=== PATIENT | male | born 1985 | race Caucasian/White ===

== ENCOUNTER 2021-06-09 02:11 | Emergency (ER) | payer SELFPAY | END 2021-06-09 02:23 | disposition home or self-care (01) | LOC: MW.ED 02:11 | DX: Z00.8 Encounter for other general examination (principal); Z88.2 Allergy status to sulfonamides | CPT/HCPCS: 99282; 99283 ==

== ENCOUNTER 2021-10-14 20:26 | Emergency (ER) | payer OTHER ==
[2021-10-14] MEDS ORDERED: Ketorolac 30 MG/ML SDV IM STA (22:07)
[2021-10-14] MEDS ORDERED: Amoxicillin/Clavulanate K 875-125 MG Tab PO STA (22:08)
[2021-10-14] MEDS ORDERED: Lidocaine 1% 5 ML VIAL INJECT ONE (23:16)
== END 2021-10-14 23:54 | disposition home or self-care (01) ==
LOC: MW.ED 20:26
DX: S61.252A Open bite of right middle finger without damage to nail, initial encounter (principal); Z88.2 Allergy status to sulfonamides; W54.0XXA Bitten by dog, initial encounter
CPT/HCPCS: 12001; 73130; 96372; 99283; A9270; J1885; 99282

== ENCOUNTER 2023-07-03 15:52 | Inpatient (IN) | payer OTHER ==
[2023-07-03] MEDS: Sodium Chloride 0.9% 1,000 ML IV ONE ×3 (16:16→22:25)
[2023-07-03] MEDS: LORazepam 2 MG/ML SDV IVPUSH ONE (16:18)
[2023-07-03 16:45] LABS: BASOPHILS ABSOLUTE AUTO 0.08 K/uL (0.00-0.20); BASOPHILS PERCENT AUTO 0.7 % (0.0-1.0); EOSINOPHILS ABSOLUTE AUTO 0.04 K/uL (0.00-0.45); EOSINOPHILS PERCENT AUTO 0.3 % (0.0-6.0); HEMATOCRIT 36.3 % (42.0-52.0); HEMOGLOBIN 12.6 g/dL (14.0-18.0); IMMATURE GRAN ABSOLUTE AUTO 0.05 K/uL (0.00-0.05); IMMATURE GRAN PERCENT AUTO 0.4 % (0.0-0.4); LYMPHOCYTES ABSOLUTE AUTO 1.56 K/uL (1.00-4.80); LYMPHOCYTES PERCENT AUTO 13.1 % (24.0-44.0); MEAN CORPUSCULAR HEMOGLOBIN 34.1 pg (28.0-32.0); MEAN CORPUSCULAR HGB CONC 34.7 g/dL (32.0-36.0); MEAN CORPUSCULAR VOLUME 98.1 fL (83.0-99.0); MEAN PLATELET VOLUME 10.8 fL (9.4-12.4); MONOCYTES ABSOLUTE AUTO 1.66 K/uL (0.00-0.80); MONOCYTES PERCENT AUTO 13.9 % (0.0-8.0); NEUTROPHILS ABSOLUTE AUTO 8.56 K/uL (1.80-7.70); NEUTROPHILS PERCENT AUTO 71.6 % (41.0-71.0); PLATELET COUNT,PLT 220 K/uL (150-400); WHITE BLOOD CELL COUNT,WBC 11.95 K/uL (3.9-11.3)
[2023-07-03 17:10] LABS: A/G RATIO 0.9 (0.9-1.6); ACETAMINOPHEN <2.0 ug/mL; ALANINE AMINOTRANSFERASE,ALT 71 IU/L (14-63); ALBUMIN 4.4 g/dL (3.4-5.0); ALKALINE PHOSPHATASE 73 U/L (46-116); ASPARTATE AMNIOTRANSFERASE,AST 108 IU/L (15-37); BILIRUBIN TOTAL 3.1 mg/dL (0.2-1.0); BLOOD UREA NITROGEN,BUN 55 mg/dL (7.0-18.0); CALCIUM 9.8 mg/dL (8.5-10.1); CARBON DIOXIDE,CO2 21.3 mmol/L (21.0-32.0); CHLORIDE,CL 104 mmol/L (98-107); CREATININE 1.1 mg/dL (0.8-1.3); EST CRCL DRUG DOSING (CG) 81.36 mL/min; ESTIMATED GFR 88 mL/min (>60); ETHANOL BLOOD MEDICAL < 3.0 mg/dL; GLUCOSE RANDOM 119 mg/dL (74-106); POTASSIUM,K 3.1 mmol/L (3.5-5.1); PROTEIN TOTAL,TP 9.1 g/dL (6.4-8.2); SALICYLATE <0.2 mg/dL (0.0-20.0); SODIUM,NA 146 mmol/L (136-148); TSH ULTRASENSITIVE 0.22 uIU/mL (0.36-3.74)
[2023-07-03] MEDS: Lactulose Soln 10 GM/15 ML 15 ML UD Cup PO ONE (17:30)
[2023-07-03 17:38] LABS: INR 1.09 (0.86-1.11)
[2023-07-03 18:01] LABS: T3 FREE 2.44 pg/mL (2.18-3.98); T4 FREE 1.46 ng/dL (0.76-1.46)
[2023-07-03] MEDS ORDERED: PHENobarbital Sodium 130 MG/ML SDV IVPUSH PRN (19:34)
[2023-07-03] MEDS: Folic Acid 1 MG/0.2 ML UD Syringe IV SCH (22:21)
[2023-07-03] MEDS: Potassium Chloride 20 MEQ Tab.ER PO ONE (22:36)
[2023-07-03] MEDS: Thiamine 500 MG in Sodium Chloride 0.9% 250 ML IV SCH (23:27)
[2023-07-04 02:05] LABS: APPEARANCE,URINE CLEAR; BILIRUBIN,URINE NEGATIVE (NEGATIVE); COLOR,URINE ORANGE; GLUCOSE,URINE NEGATIVE (NEGATIVE); KETONES,URINE 40 mg/dL (NEGATIVE); LEUKOCYTE ESTERASE,URINE NEGATIVE (NEGATIVE); NITRITE,URINE NEGATIVE (NEGATIVE); OCCULT BLOOD,URINE NEGATIVE (NEGATIVE); PROTEIN,URINE TRACE mg/dL (NEGATIVE)
[2023-07-04 02:12] LABS: BACTERIA,URINE RARE (NEGATIVE); EPITHELIAL CELLS,URINE RARE (NONE-FEW); RBC,URINE 0-1 (0-2/HPF); WBC,URINE 0-1 (0-5/HPF)
[2023-07-04 02:15] LABS: AMPHETAMINES SCREEN, URINE NEGATIVE (CUTOFF=500); BARBITURATE SCREEN,URINE NEGATIVE (CUTOFF=200); BENZODIAZEPINES SCREEN,URINE PRESUMPTIVE POSITIVE (CUTOFF=150); BUPRENORPHINE SCREEN,URINE NEGATIVE (CUTOFF=10); METHADONE SCREEN, URINE NEGATIVE (CUTOFF=200); METHAMPHETAMINES SCREEN, URINE NEGATIVE (CUTOFF=500); OXYCODONE SCREEN,URINE NEGATIVE (CUT0FF=100); PCP SCREEN,URINE NEGATIVE (CUTOFF=25); THC SCREEN,URINE 20 NG/ML NEGATIVE (CUTOFF=50)
[2023-07-04] MEDS: Sodium Chloride 0.9% 1,000 ML IV SCH (03:17)
[2023-07-04 06:19] LABS: BASOPHILS ABSOLUTE AUTO 0.05 K/uL (0.00-0.20); BASOPHILS PERCENT AUTO 0.6 % (0.0-1.0); EOSINOPHILS ABSOLUTE AUTO 0.23 K/uL (0.00-0.45); EOSINOPHILS PERCENT AUTO 2.9 % (0.0-6.0); HEMOGLOBIN 10.5 g/dL (14.0-18.0); IMMATURE GRAN ABSOLUTE AUTO 0.05 K/uL (0.00-0.05); IMMATURE GRAN PERCENT AUTO 0.6 % (0.0-0.4); LYMPHOCYTES ABSOLUTE AUTO 1.19 K/uL (1.00-4.80); LYMPHOCYTES PERCENT AUTO 15.2 % (24.0-44.0); MEAN CORPUSCULAR HEMOGLOBIN 34.3 pg (28.0-32.0); MEAN CORPUSCULAR HGB CONC 33.9 g/dL (32.0-36.0); MEAN CORPUSCULAR VOLUME 101.3 fL (83.0-99.0); MEAN PLATELET VOLUME 10.5 fL (9.4-12.4); MONOCYTES ABSOLUTE AUTO 1.17 K/uL (0.00-0.80); NEUTROPHILS ABSOLUTE AUTO 5.13 K/uL (1.80-7.70); NEUTROPHILS PERCENT AUTO 65.7 % (41.0-71.0); PLATELET COUNT,PLT 164 K/uL (150-400); RED BLOOD CELL COUNT 3.06 M/uL (4.52-5.90); WHITE BLOOD CELL COUNT,WBC 7.82 K/uL (3.9-11.3)
[2023-07-04 06:41] LABS: CALCIUM 8.3 mg/dL (8.5-10.1); CARBON DIOXIDE,CO2 21.3 mmol/L (21.0-32.0); CREATININE 0.6 mg/dL (0.8-1.3); EST CRCL DRUG DOSING (CG) 170.67 mL/min; MAGNESIUM 2.2 mg/dL (1.8-2.4); PHOSPHORUS 2.8 mg/dL (2.6-4.7); POTASSIUM,K 3.2 mmol/L (3.5-5.1)
[2023-07-04] MEDS ORDERED: PHENobarbital 32.4 MG Tab PO PRN ×3 (06:50→06:51)
[2023-07-04] MEDS: Potassium Chloride 20 MEQ Tab.ER PO ONE (08:00)
[2023-07-04 10:34] LABS: A/G RATIO 0.9 (0.9-1.6); BILIRUBIN DIRECT 0.9 mg/dL (0.0-0.5); BILIRUBIN INDIRECT 1.9; BILIRUBIN TOTAL 2.8 mg/dL (0.2-1.0); PROTEIN TOTAL,TP 6.2 g/dL (6.4-8.2)
[2023-07-05 06:35] LABS: BASOPHILS ABSOLUTE AUTO 0.04 K/uL (0.00-0.20); BASOPHILS PERCENT AUTO 0.5 % (0.0-1.0); EOSINOPHILS ABSOLUTE AUTO 0.21 K/uL (0.00-0.45); EOSINOPHILS PERCENT AUTO 2.9 % (0.0-6.0); HEMATOCRIT 33.3 % (42.0-52.0); HEMOGLOBIN 11.2 g/dL (14.0-18.0); IMMATURE GRAN ABSOLUTE AUTO 0.03 K/uL (0.00-0.05); IMMATURE GRAN PERCENT AUTO 0.4 % (0.0-0.4); LYMPHOCYTES ABSOLUTE AUTO 1.62 K/uL (1.00-4.80); LYMPHOCYTES PERCENT AUTO 22.1 % (24.0-44.0); MEAN CORPUSCULAR HEMOGLOBIN 33.9 pg (28.0-32.0); MEAN CORPUSCULAR HGB CONC 33.6 g/dL (32.0-36.0); MEAN CORPUSCULAR VOLUME 100.9 fL (83.0-99.0); MEAN PLATELET VOLUME 11.4 fL (9.4-12.4); MONOCYTES ABSOLUTE AUTO 1.27 K/uL (0.00-0.80); MONOCYTES PERCENT AUTO 17.3 % (0.0-8.0); NEUTROPHILS ABSOLUTE AUTO 4.16 K/uL (1.80-7.70); NEUTROPHILS PERCENT AUTO 56.8 % (41.0-71.0); PLATELET COUNT,PLT 173 K/uL (150-400); WHITE BLOOD CELL COUNT,WBC 7.33 K/uL (3.9-11.3)
[2023-07-05 06:52] LABS: CALCIUM 8.6 mg/dL (8.5-10.1); CARBON DIOXIDE,CO2 23.9 mmol/L (21.0-32.0); CREATININE 0.6 mg/dL (0.8-1.3); EST CRCL DRUG DOSING (CG) 170.67 mL/min; MAGNESIUM 1.8 mg/dL (1.8-2.4); PHOSPHORUS 2.1 mg/dL (2.6-4.7); POTASSIUM,K 3.5 mmol/L (3.5-5.1)
[2023-07-05] MEDS: Potassium Chloride 20 MEQ Tab.ER PO ONE (10:14)
[2023-07-05] MEDS: Potassium Chloride 20 MEQ Tab.ER ONE (10:18)
[2023-07-05] MEDS: Phosphorus #1 250 MG Tab PO SCH (11:43)
== END 2023-07-05 13:30 | disposition home or self-care (01) | DRG 897 ==
LOC: MW.ED 15:52 → MW.ICU 17:15 → MW.MS 07-04 10:51
PROVIDERS: ADMIT Internal Medicine; ATTEND Internal Medicine
PROC: 4A033R1 Measurement of Arterial Saturation, Peripheral, Percutaneous Approach (ICD-10-PCS; principal; 2023-07-03)
DX: F10.931 Alcohol use, unspecified with withdrawal delirium (principal); K51.90 Ulcerative colitis, unspecified, without complications; F10.932 Alcohol use, unspecified with withdrawal with perceptual disturbance; D72.829 Elevated white blood cell count, unspecified; Z88.2 Allergy status to sulfonamides; Z79.4 Long term (current) use of insulin
CPT/HCPCS: 36415; 70450; 70450-26; 71045; 71045-26; 80048; 80053; 80076; 80143; 80179; 80305-QW; 80307; 81001; 82140; 82375; 83735; 84100; 84439; 84443; 84481; 85025; 85610; 93005; 93010; 96361; 96374; 99285; 99285-25; A9270-GY; J2060; J3411; J3490; J7030; J7050

== ENCOUNTER 2024-05-04 12:31 | Emergency (ER) | payer SELFPAY | END 2024-05-04 14:50 | disposition home or self-care (01) | LOC: MW.ED 12:31 | DX: L03.116 Cellulitis of left lower limb (principal); F17.210 Nicotine dependence, cigarettes, uncomplicated; Z75.8 Other problems related to medical facilities and other health care; Z88.2 Allergy status to sulfonamides; Z79.899 Other long term (current) drug therapy | CPT/HCPCS: 73562-26-LT; 73562-LT; 99283 ==

== ENCOUNTER 2024-05-29 13:13 | Emergency (ER) | payer SELFPAY ==
[2024-05-29] MEDS: Lidocaine 1% with EPINEPHrine 1:100,000 10 ML MDV INJECT ONE (13:35)
[2024-05-29] MEDS: Diphtheria,Pertussis(Acell),Tetanus Vaccine 0.5 ML Syringe IM ONE (14:00)
== END 2024-05-29 14:10 | disposition home or self-care (01) ==
LOC: MW.ED 13:13
DX: S51.812A Laceration without foreign body of left forearm, initial encounter (principal); Z23 Encounter for immunization; Z88.2 Allergy status to sulfonamides; Z79.899 Other long term (current) drug therapy; W26.0XXA Contact with knife, initial encounter
CPT/HCPCS: 12002; 90471; 99282-25; 99283